=== PATIENT | female | born 1950 | race Caucasian/White ===

== ENCOUNTER → 2022-08-27 | Outpatient (CLI) | payer MEDICARE ==
[~2022-08-27] MED LIST: GADOBENATE DIMEGLUMINE 1 ML IV ONE
[2022-08-27 09:02] LABS: CREATININE, SERUM 1.07 mg/dL (0.57-1.11)
== END ==
LOC: MRI 08:01
PROVIDERS: ATTEND Internal Medicine Gastroenterology
DX: R10.13 Epigastric pain (principal); E11.43 Type 2 diabetes mellitus with diabetic autonomic (poly)neuropathy; K57.30 Diverticulosis of large intestine without perforation or abscess without bleeding; K44.9 Diaphragmatic hernia without obstruction or gangrene; K58.9 Irritable bowel syndrome, unspecified; K21.9 Gastro-esophageal reflux disease without esophagitis; R11.0 Nausea; Z68.31 Body mass index [BMI] 31.0-31.9, adult; Z86.010 Personal history of colon polyps
CPT/HCPCS: 36415; 74183; 82565; 84520

== ENCOUNTER 2023-03-17 15:40 | Emergency (ER) | payer MEDICARE ==
[~2023-03-17] VITALS: Ht 167.6 cm; Wt 72.6 kg
[2023-03-17 16:59] LABS: BASOPHILS # (AUTO) 0.1 (0.0-0.1); BASOPHILS % 0.9 % (0.0-1.0); EOSINOPHILS # (AUTO) 0.1 (0.0-0.4); HEMATOCRIT 39.2 % (34.2-44.1); HEMOGLOBIN 13.1 g/dL (12.0-16.0); LYMPHOCYTES # (AUTO) 1.4 (1.0-3.2); LYMPHOCYTES % 21.3 % (18.0-39.1); MEAN CORPUSCULAR HEMOGLOBIN 31.9 pg (28-32); MEAN CORPUSCULAR HGB CONC 33.4 g/dL (31-35); MEAN CORPUSCULAR VOLUME 95.4 fL (81-99); MONOCYTES # (AUTO) 0.5 (0.2-0.8); MONOCYTES % 7.8 % (4.4-11.3); NEUTROPHILS # (AUTO) 4.4 (2.1-6.9); NEUTROPHILS % 67.7 % (38.7-80.0); PLATELET COUNT 274 x10e3/uL (140-360); RED BLOOD COUNT 4.11 x10e6/uL (3.6-5.1); RED CELL DISTRIBUTION WIDTH 12.9 % (11.7-14.4)
[2023-03-17 17:09] LABS: PARTIAL THROMBOPLASTIN TIME 68.7 seconds (23.8-35.5)
[2023-03-17 17:15] LABS: PROTHROMBIN TIME 54.8 seconds (11.9-14.5)
[2023-03-17 17:16] LABS: INR 6.23
== END 2023-03-17 18:11 | disposition home or self-care (01) ==
LOC: ER 15:51
DX: R79.0 Abnormal level of blood mineral (principal); R79.1 Abnormal coagulation profile; I10 Essential (primary) hypertension; E11.9 Type 2 diabetes mellitus without complications; I50.9 Heart failure, unspecified; I48.91 Unspecified atrial fibrillation; E78.5 Hyperlipidemia, unspecified; E03.9 Hypothyroidism, unspecified; F41.9 Anxiety disorder, unspecified; K21.9 Gastro-esophageal reflux disease without esophagitis
CPT/HCPCS: 36415; 85025; 85610; 85730; 99283

== ENCOUNTER 2024-12-07 10:51 | Emergency (ER) | payer MEDICARE ==
[~2024-12-07] VITALS: Ht 167.6 cm; Wt 72.6 kg
[2024-12-07 10:55] VITALS: TEMP 97.7
[2024-12-07 11:47] LABS: BASOPHILS # (AUTO) 0.1 (0.0-0.1); BASOPHILS % 0.9 % (0.0-1.0); EOSINOPHILS # (AUTO) 0.1 (0.0-0.4); EOSINOPHILS % 2.1 % (0.0-6.0); HEMATOCRIT 38.3 % (34.2-44.1); HEMOGLOBIN 12.1 g/dL (12.0-16.0); LYMPHOCYTES # (AUTO) 1.2 (1.0-3.2); LYMPHOCYTES % 21.4 % (18.0-39.1); MEAN CORPUSCULAR HEMOGLOBIN 30.6 pg (28-32); MEAN CORPUSCULAR HGB CONC 31.6 g/dL (31-35); MONOCYTES # (AUTO) 0.6 (0.2-0.8); MONOCYTES % 9.7 % (4.4-11.3); NEUTROPHILS # (AUTO) 3.8 (2.1-6.9); NEUTROPHILS % 65.6 % (38.7-80.0); PLATELET COUNT 303 x10e3/uL (140-360); RED BLOOD COUNT 3.95 x10e6/uL (3.6-5.1); RED CELL DISTRIBUTION WIDTH 13.6 % (11.7-14.4); WHITE BLOOD COUNT 5.79 x10e3/uL (4.8-10.8)
[2024-12-07 12:13] LABS: INR 2.01; PROTHROMBIN TIME 23.8 seconds (11.9-14.5)
[2024-12-07 12:14] LABS: PARTIAL THROMBOPLASTIN TIME 37.2 seconds (23.8-35.5)
[2024-12-07 12:17] LABS: ALBUMIN 3.8 g/dL (3.5-5.0); ALBUMIN/GLOBULIN RATIO 1.2 (0.8-2.0); ANION GAP 16.4 mmol/L (8-16); BILIRUBIN,TOTAL 0.3 mg/dL (0.2-1.2); CALCIUM 10.1 mg/dL (8.4-10.2); CREATININE, SERUM 0.87 mg/dL (0.57-1.11); POTASSIUM 4.4 mmol/L (3.5-5.1); TOTAL PROTEIN 7.1 g/dL (6.5-8.1)
[2024-12-07 13:05] VITALS: PULSE 60; RESP 16; O2SAT 99
[2024-12-07 13:19] VITALS: TEMP 98
== END 2024-12-07 13:21 | disposition home or self-care (01) ==
LOC: ER 11:05
DX: M79.605 Pain in left leg (principal); M79.675 Pain in left toe(s); R10.32 Left lower quadrant pain; Z79.01 Long term (current) use of anticoagulants; I10 Essential (primary) hypertension; E11.9 Type 2 diabetes mellitus without complications; E78.5 Hyperlipidemia, unspecified; I50.9 Heart failure, unspecified; I48.91 Unspecified atrial fibrillation; E03.9 Hypothyroidism, unspecified; K21.9 Gastro-esophageal reflux disease without esophagitis; F41.9 Anxiety disorder, unspecified; F32.A Depression, unspecified
CPT/HCPCS: 36415; 80053; 85025; 85610; 85730; 93971; 99284

== ENCOUNTER 2025-02-12 10:30 | Emergency (ER) | payer MEDICARE ==
[~2025-02-12] VITALS: Ht 167.6 cm; Wt 72.6 kg
[2025-02-12 11:13] VITALS: TEMP 98.2
[2025-02-12 11:56] LABS: INR 1.24; PROTHROMBIN TIME 16.3 seconds (11.9-14.5)
[2025-02-12] MEDS ORDERED: ENOXAPARIN INJ 80 MG/0.8 ML SYR SC ONE (13:47)
[2025-02-12 14:00] VITALS: PULSE 72; RESP 18; O2SAT 100
[2025-02-12] MEDS: ENOXAPARIN INJ 80 MG/0.8 ML SYR SC STA (14:04)
[2025-02-12] MEDS ORDERED: LOVENOX80 MG/0.8 SC (14:11)
== END 2025-02-12 14:42 | disposition home or self-care (01) ==
LOC: ER 11:52
DX: M79.662 Pain in left lower leg (principal); I82.412 Acute embolism and thrombosis of left femoral vein; I10 Essential (primary) hypertension; E11.9 Type 2 diabetes mellitus without complications; E78.5 Hyperlipidemia, unspecified; I50.9 Heart failure, unspecified; I48.91 Unspecified atrial fibrillation; E03.9 Hypothyroidism, unspecified; K21.9 Gastro-esophageal reflux disease without esophagitis; F41.9 Anxiety disorder, unspecified; F32.A Depression, unspecified; Z79.01 Long term (current) use of anticoagulants
CPT/HCPCS: 36415; 85610; 93971; 99283; J1650

== ENCOUNTER 2025-02-14 13:56 | Inpatient (IN) | payer MEDICARE ==
[~2025-02-14] VITALS: Ht 162.6 cm; Wt 72.1 kg
[~2025-02-14 13:56] MED LIST changes: -GADOBENATE DIMEGLUMINE 1 ML IV ONE; +LOVENOX80 MG/0.8 SC
[2025-02-14 14:11] VITALS: TEMP 98.2
[2025-02-14] MEDS ORDERED: ONDANSETRON HCL INJ 2MG/ML 2ML 2 MG/ML VIAL IV PRN ×2 (14:15→17:00)
[2025-02-14] MEDS: DICYCLOMINE HCL 20 MG/2 ML VIAL IM ONE (15:04)
[2025-02-14] MEDS: SODIUM CHLORIDE 0.9% 1000ML 1,000 ML IV STA (15:04)
[2025-02-14 15:25] LABS: BASOPHILS # (AUTO) 0.1 (0.0-0.1); BASOPHILS % 0.7 % (0.0-1.0); EOSINOPHILS # (AUTO) 0.1 (0.0-0.4); EOSINOPHILS % 1.6 % (0.0-6.0); HEMATOCRIT 34.9 % (34.2-44.1); LYMPHOCYTES # (AUTO) 1.5 (1.0-3.2); LYMPHOCYTES % 16.7 % (18.0-39.1); MEAN CORPUSCULAR HEMOGLOBIN 30.7 pg (28-32); MEAN CORPUSCULAR HGB CONC 34.4 g/dL (31-35); MEAN CORPUSCULAR VOLUME 89.3 fL (81-99); MONOCYTES # (AUTO) 0.7 (0.2-0.8); MONOCYTES % 7.9 % (4.4-11.3); NEUTROPHILS # (AUTO) 6.3 (2.1-6.9); NEUTROPHILS % 72.6 % (38.7-80.0); PLATELET COUNT 342 x10e3/uL (140-360); RED BLOOD COUNT 3.91 x10e6/uL (3.6-5.1); RED CELL DISTRIBUTION WIDTH 13.3 % (11.7-14.4); WHITE BLOOD COUNT 8.72 x10e3/uL (4.8-10.8)
[2025-02-14 15:35] LABS: BILIRUBIN,URINE NEGATIVE (NEGATIVE); CLARITY,URINE CLEAR (CLEAR); COLOR,URINE YELLOW (YELLOW); GLUCOSE, URINE NEGATIVE (NEGATIVE); KETONES,URINE 1+ (NEGATIVE); LEUKOCYTE ESTERASE ,URINE MODERATE (NEGATIVE); NITRITE,URINE NEGATIVE (NEGATIVE); PH,URINE 7.5 (5 - 7); PROTEIN,URINE DIPSTICK NEGATIVE (NEGATIVE); URINE UROBILINOGEN 0.2 mg/dL (0.2 - 1)
[2025-02-14 15:38] LABS: BACTERIA,URINE FEW /HPF; EPITHELIAL CELLS,URINE FEW /LPF; RBC,URINE 0-5 /HPF (0-5); WBC,URINE (MAN) >50 /HPF (0-5)
[2025-02-14 15:39] LABS: TRANSITIONAL EPI CELLS,URINE MODERATE
[2025-02-14 15:49] LABS: ALBUMIN 3.8 g/dL (3.5-5.0); ALBUMIN/GLOBULIN RATIO 1.1 (0.8-2.0); BILIRUBIN,TOTAL 0.8 mg/dL (0.2-1.2); CALCIUM 9.9 mg/dL (8.4-10.2); CREATININE, SERUM 0.88 mg/dL (0.57-1.11); TOTAL PROTEIN 7.4 g/dL (6.5-8.1)
[2025-02-14] MEDS ORDERED: IOPAMIDOL 370 MG/ML 100 ML INFUS..BTL INJ ONE (15:58)
[2025-02-14] MEDS ORDERED: WARFARIN SOD 2 MG TAB PO SCH (17:15)
[2025-02-14] MEDS: SODIUM CHLORIDE 0.9% 1000ML 1,000 ML IV SCH (17:56)
[2025-02-14] MEDS: CEFTRIAXONE 2 GM in SODIUM CHLORIDE 0.9% 100 ML IV ONE (17:56)
[2025-02-14] MEDS: PHENAZOPYRIDINE HCL 100 MG TAB PO PRN (17:57)
[2025-02-14] MEDS: ENOXAPARIN INJ 80 MG/0.8 ML SYR SC SCH (17:57)
[2025-02-14 18:00] VITALS: PULSE 72; RESP 16
[2025-02-14 18:09] LABS: INR 1.47; PROTHROMBIN TIME 18.6 seconds (11.9-14.5)
[2025-02-14] MEDS: WARFARIN SOD 2 MG TAB PO SCH (18:59)
[2025-02-14] MEDS ORDERED: KETOROLAC TROMETHAMINE 30 MG/ML VIAL IV PRN (19:00)
[2025-02-14] MEDS: PROMETHAZINE 12.5MG/ NACL 0.9% 12.5 MG/50 ML BAG IV PRN (19:55)
[2025-02-14] MEDS: ALPRAZOLAM 0.5 MG TAB PO PRN (20:48)
[2025-02-14] MEDS: WARFARIN SOD 2 MG TAB PO ONE (20:48)
[2025-02-14 20:51] VITALS: BP 155/63; PULSE 67; RESP 18; TEMP 97.8; O2SAT 100
[2025-02-14 21:00] VITALS: BP 155/63; PULSE 67; RESP 18; TEMP 97.8; O2SAT 100
[2025-02-14 22:05] VITALS: BP 155/63; PULSE 67; RESP 18; TEMP 97.8; O2SAT 100
[2025-02-14] MEDS ORDERED: Morphine 2mg Syringe 2 MG/ML SYR IV PRN (22:30)
[2025-02-14] MEDS ORDERED: MELATONIN 5 MG TABLET PO PRN (22:30)
[2025-02-14] MEDS ORDERED: FAMOTIDINE 20 MG TAB PO PRN (22:30)
[2025-02-14] MEDS ORDERED: HYDRALAZINE HCL 20 MG/ML VIAL IV PRN (22:30)
[2025-02-14] MEDS ORDERED: FUROSEMIDE40 MG PO (22:45)
[2025-02-14] MEDS ORDERED: LEVOTHYROXINE50 MCG PO (22:45)
[2025-02-14] MEDS ORDERED: MICARDIS20 MG PO (22:45)
[2025-02-14] MEDS ORDERED: WARFARIN SODIUM2 MG PO (22:45)
[2025-02-14] MEDS ORDERED: METFORMIN HCL500 M2 PO (22:45)
[2025-02-14] MEDS ORDERED: ALPRAZOLAM0.5 MG PO (22:45)
[2025-02-14] MEDS ORDERED: OMEPRAZOLE40 MG PO (22:45)
[2025-02-15] MEDS: ACETAMINOPHEN 1000 MG/100 ML IV SCH
[2025-02-15 04:10] VITALS: BP 119/55; PULSE 83; RESP 18; TEMP 98.2; O2SAT 96
[2025-02-15] MEDS: ENOXAPARIN INJ 80 MG/0.8 ML SYR SC SCH (06:07)
[2025-02-15 06:43] LABS: BASOPHILS % 0.3 % (0.0-1.0); EOSINOPHILS % 0.1 % (0.0-6.0); HEMATOCRIT 32.9 % (34.2-44.1); HEMOGLOBIN 11.5 g/dL (12.0-16.0); LYMPHOCYTES # (AUTO) 0.3 (1.0-3.2); LYMPHOCYTES % 3.2 % (18.0-39.1); MEAN CORPUSCULAR HEMOGLOBIN 30.7 pg (28-32); MEAN CORPUSCULAR VOLUME 87.7 fL (81-99); MONOCYTES # (AUTO) 0.5 (0.2-0.8); MONOCYTES % 5.4 % (4.4-11.3); NEUTROPHILS # (AUTO) 8.7 (2.1-6.9); NEUTROPHILS % 90.7 % (38.7-80.0); PLATELET COUNT 280 x10e3/uL (140-360); RED BLOOD COUNT 3.75 x10e6/uL (3.6-5.1); RED CELL DISTRIBUTION WIDTH 13.2 % (11.7-14.4); WHITE BLOOD COUNT 9.58 x10e3/uL (4.8-10.8)
[2025-02-15 07:14] LABS: ANION GAP 15.7 mmol/L (8-16); CALCIUM 8.7 mg/dL (8.4-10.2); CREATININE, SERUM 0.81 mg/dL (0.57-1.11); POTASSIUM 3.7 mmol/L (3.5-5.1)
[2025-02-15 08:20] VITALS: BP 106/61; PULSE 86; RESP 20; TEMP 99.1; O2SAT 98
[2025-02-15 09:49] VITALS: BP 106/61; PULSE 86; RESP 20; TEMP 99.1; O2SAT 98
[2025-02-15 12:33] VITALS: BP 121/53; PULSE 66; RESP 18; TEMP 99.3; O2SAT 97
[2025-02-15 13:56] LABS: INR 2.14
[2025-02-15 16:53] VITALS: BP 104/58; PULSE 64; RESP 20; TEMP 98.1; O2SAT 96
[2025-02-15] MEDS: WARFARIN SOD 2 MG TAB PO SCH (17:33)
[2025-02-15 20:00] VITALS: BP 139/75; PULSE 63; RESP 18; TEMP 97.3; O2SAT 98
[2025-02-15] MEDS: ACETAMINOPHEN 1000 MG/100 ML IV PRN (21:34)
[2025-02-16 02:20] VITALS: BP 118/57; PULSE 62; RESP 18; TEMP 98.3; O2SAT 100
[2025-02-16] MEDS: LEVOTHYROXINE SODIUM 50 MCG TAB PO SCH (06:00)
[2025-02-16 06:30] LABS: BASOPHILS % 0.5 % (0.0-1.0); EOSINOPHILS # (AUTO) 0.2 (0.0-0.4); HEMATOCRIT 32.2 % (34.2-44.1); HEMOGLOBIN 10.7 g/dL (12.0-16.0); LYMPHOCYTES # (AUTO) 1.3 (1.0-3.2); MEAN CORPUSCULAR HEMOGLOBIN 30.8 pg (28-32); MEAN CORPUSCULAR HGB CONC 33.2 g/dL (31-35); MEAN CORPUSCULAR VOLUME 92.8 fL (81-99); MONOCYTES # (AUTO) 0.4 (0.2-0.8); MONOCYTES % 5.8 % (4.4-11.3); NEUTROPHILS # (AUTO) 5.7 (2.1-6.9); NEUTROPHILS % 74.4 % (38.7-80.0); PLATELET COUNT 276 x10e3/uL (140-360); RED BLOOD COUNT 3.47 x10e6/uL (3.6-5.1); RED CELL DISTRIBUTION WIDTH 13.4 % (11.7-14.4)
[2025-02-16 06:33] LABS: INR 2.83; PROTHROMBIN TIME 31.1 seconds (11.9-14.5)
[2025-02-16 06:48] LABS: ALBUMIN 2.9 g/dL (3.5-5.0); ANION GAP 13.6 mmol/L (8-16); BILIRUBIN,TOTAL 0.5 mg/dL (0.2-1.2); CALCIUM 8.3 mg/dL (8.4-10.2); CREATININE, SERUM 0.88 mg/dL (0.57-1.11); POTASSIUM 3.6 mmol/L (3.5-5.1); TOTAL PROTEIN 5.7 g/dL (6.5-8.1)
[2025-02-16 09:23] VITALS: BP 163/84; PULSE 69; RESP 18; O2SAT 97
[2025-02-16 09:24] VITALS: BP 163/84; PULSE 69; RESP 18; TEMP 98.3; O2SAT 97
[2025-02-16 12:02] VITALS: BP 148/73; PULSE 68; RESP 18; TEMP 97.9; O2SAT 96
[2025-02-16 17:12] VITALS: BP 141/66; PULSE 74; RESP 18; TEMP 98.1; O2SAT 99
[2025-02-16 20:00] VITALS: BP 149/76; PULSE 66; RESP 18; TEMP 97.8; O2SAT 99
[2025-02-16] MEDS: BISACODYL 10 MG SUPP PR SCH (21:48)
[2025-02-17] VITALS (9 sets, daily range): BP systolic 124–160; BP diastolic 56–75; PULSE 56–82; RESP 17–20; TEMP 97.7–98.5; O2SAT 98–99
[2025-02-17 05:53] LABS: BASOPHILS # (AUTO) 0.1 (0.0-0.1); BASOPHILS % 0.7 % (0.0-1.0); EOSINOPHILS # (AUTO) 0.2 (0.0-0.4); EOSINOPHILS % 2.6 % (0.0-6.0); HEMATOCRIT 35.6 % (34.2-44.1); HEMOGLOBIN 11.8 g/dL (12.0-16.0); LYMPHOCYTES # (AUTO) 1.4 (1.0-3.2); LYMPHOCYTES % 16.5 % (18.0-39.1); MEAN CORPUSCULAR HEMOGLOBIN 30.7 pg (28-32); MEAN CORPUSCULAR HGB CONC 33.1 g/dL (31-35); MEAN CORPUSCULAR VOLUME 92.7 fL (81-99); MONOCYTES # (AUTO) 0.5 (0.2-0.8); MONOCYTES % 6.5 % (4.4-11.3); NEUTROPHILS % 73.3 % (38.7-80.0); PLATELET COUNT 343 x10e3/uL (140-360); RED BLOOD COUNT 3.84 x10e6/uL (3.6-5.1); RED CELL DISTRIBUTION WIDTH 13.1 % (11.7-14.4); WHITE BLOOD COUNT 8.18 x10e3/uL (4.8-10.8)
[2025-02-17 06:28] LABS: ALBUMIN/GLOBULIN RATIO 0.9 (0.8-2.0); ANION GAP 18.9 mmol/L (8-16); BILIRUBIN,TOTAL 0.4 mg/dL (0.2-1.2); CALCIUM 8.8 mg/dL (8.4-10.2); CREATININE, SERUM 0.82 mg/dL (0.57-1.11); POTASSIUM 3.9 mmol/L (3.5-5.1); TOTAL PROTEIN 6.5 g/dL (6.5-8.1)
[2025-02-17] MEDS: DEXTROSE 5% 1,000 ML IV SCH (07:15)
[2025-02-17 08:31] LABS: INR 2.56; PROTHROMBIN TIME 28.8 seconds (11.9-14.5)
[2025-02-17] MEDS: TELMISARTAN 40 MG TAB PO SCH (09:38)
[2025-02-17] MEDS: METOCLOPRAMIDE HCL 10 MG/2ML VIAL IV SCH (16:30)
[2025-02-17] MEDS: DEXTROSE 5%/0.45% SOD CHL 1,000 ML IV SCH (17:15)
[2025-02-17] MEDS: SODIUM CHLORIDE 0.9% 1000ML 1,000 ML IV SCH (17:36)
[2025-02-17] MEDS: BISACODYL 10 MG SUPP PR SCH (20:39)
[2025-02-18] VITALS (7 sets, daily range): BP systolic 120–161; BP diastolic 46–80; PULSE 55–80; RESP 16–18; TEMP 97.7–98.6; O2SAT 97–100
[2025-02-18] MEDS: LEVOTHYROXINE SODIUM 50 MCG TAB PO SCH (05:28)
[2025-02-18 06:59] LABS: BASOPHILS % 0.8 % (0.0-1.0); EOSINOPHILS # (AUTO) 0.2 (0.0-0.4); EOSINOPHILS % 3.1 % (0.0-6.0); HEMATOCRIT 30.6 % (34.2-44.1); HEMOGLOBIN 10.3 g/dL (12.0-16.0); LYMPHOCYTES # (AUTO) 0.9 (1.0-3.2); LYMPHOCYTES % 16.8 % (18.0-39.1); MEAN CORPUSCULAR HEMOGLOBIN 30.7 pg (28-32); MEAN CORPUSCULAR HGB CONC 33.7 g/dL (31-35); MEAN CORPUSCULAR VOLUME 91.1 fL (81-99); MONOCYTES # (AUTO) 0.3 (0.2-0.8); MONOCYTES % 6.6 % (4.4-11.3); NEUTROPHILS # (AUTO) 3.7 (2.1-6.9); NEUTROPHILS % 71.9 % (38.7-80.0); PLATELET COUNT 293 x10e3/uL (140-360); RED BLOOD COUNT 3.36 x10e6/uL (3.6-5.1); RED CELL DISTRIBUTION WIDTH 13.2 % (11.7-14.4); WHITE BLOOD COUNT 5.19 x10e3/uL (4.8-10.8)
[2025-02-18 07:17] LABS: INR 2.71; PROTHROMBIN TIME 30.1 seconds (11.9-14.5)
[2025-02-18 07:25] LABS: ALBUMIN 2.8 g/dL (3.5-5.0); ANION GAP 15.7 mmol/L (8-16); BILIRUBIN,TOTAL 0.4 mg/dL (0.2-1.2); CALCIUM 8.4 mg/dL (8.4-10.2); CREATININE, SERUM 0.73 mg/dL (0.57-1.11); POTASSIUM 3.7 mmol/L (3.5-5.1); TOTAL PROTEIN 5.6 g/dL (6.5-8.1)
[2025-02-18] MEDS: DICYCLOMINE HCL 10 MG CAP PO ONE (09:23)
[2025-02-18] MEDS: METOCLOPRAMIDE HCL 10 MG/2ML VIAL IV ONE (09:23)
[2025-02-18] MEDS: BISACODYL 10 MG SUPP PR ONE (09:24)
[2025-02-18] MEDS ORDERED: SODIUM CHLORIDE 0.9% 100 ML ONE (11:11)
[2025-02-18] MEDS ORDERED: IOPAMIDOL 370 MG/ML 100 ML INFUS..BTL INJ ONE (11:11)
[2025-02-19] VITALS: BP 129/49; PULSE 54; RESP 20; TEMP 97.7; O2SAT 99
[2025-02-19 04:00] VITALS: BP 132/79; PULSE 55; RESP 18; TEMP 97.6; O2SAT 97
[2025-02-19 07:29] VITALS: BP 132/79; PULSE 55; RESP 18; TEMP 97.6; O2SAT 97
[2025-02-19 08:32] VITALS: BP 136/71; PULSE 68; RESP 18; TEMP 97.9; O2SAT 100
[2025-02-19 12:01] VITALS: BP 132/70; PULSE 58; RESP 18; TEMP 97.3; O2SAT 100
== END 2025-02-19 12:25 | disposition home or self-care (01) | DRG 389 ==
LOC: ER 14:01 → ERHOLD 17:06 → MED/SURG3 18:21 → OBSVTOIN 02-15 09:29
PROVIDERS: ADMIT Family Medicine Adult Medicine; ATTEND Family Medicine Adult Medicine
DX: K56.600 Partial intestinal obstruction, unspecified as to cause (principal); I82.512 Chronic embolism and thrombosis of left femoral vein; N39.0 Urinary tract infection, site not specified; I48.91 Unspecified atrial fibrillation; I10 Essential (primary) hypertension; K21.9 Gastro-esophageal reflux disease without esophagitis; E03.9 Hypothyroidism, unspecified; R79.1 Abnormal coagulation profile; E78.5 Hyperlipidemia, unspecified; K82.8 Other specified diseases of gallbladder; R73.03 Prediabetes; E16.2 Hypoglycemia, unspecified; G62.9 Polyneuropathy, unspecified; D64.9 Anemia, unspecified; K76.0 Fatty (change of) liver, not elsewhere classified; F32.A Depression, unspecified; F41.9 Anxiety disorder, unspecified; B96.89 Other specified bacterial agents as the cause of diseases classified elsewhere; Z79.01 Long term (current) use of anticoagulants; Z79.84 Long term (current) use of oral hypoglycemic drugs; Z90.49 Acquired absence of other specified parts of digestive tract; Z98.1 Arthrodesis status; Z85.528 Personal history of other malignant neoplasm of kidney; Z90.5 Acquired absence of kidney; Z88.8 Allergy status to other drugs, medicaments and biological substances
CPT/HCPCS: 36415; 70450; 74018; 74022; 74174; 74177; 80048; 80053; 81001; 82948; 83690; 85025; 85610; 87086; 93005; 99252; 99284; G0378; J0696; J1650; J2470; J2550; J2765; J7030; J7050; J7070; Q9967